=== PATIENT | male | born 1960 | race Caucasian/White ===

== ENCOUNTER → 2024-01-24 09:20 | Outpatient (REF) | payer OTHER, SELFPAY | LOC: RCS 09:20 | PROVIDERS: ATTENDING PHYSICIAN Physician Assistant; FAMILY PHYSICIAN Family Medicine | DX: I25.10 Atherosclerotic heart disease of native coronary artery without angina pectoris (principal); Z95.5 Presence of coronary angioplasty implant and graft; I10 Essential (primary) hypertension; I50.20 Unspecified systolic (congestive) heart failure | CPT/HCPCS: 93306 ==

== ENCOUNTER 2024-02-23 07:38 | Day surgery (SDC) | payer OTHER, SELFPAY ==
[2024-02-23] VITALS (10 sets, daily range): BP systolic 115–167; BP diastolic 62–105; BMI 34.7
[2024-02-23 08:08] LABS: Hematocrit 38.4 % (39.0-52.0); Hemoglobin 13.6 g/dL (13.0-18.0); Mean Corp Hgb Conc. 35.4 g/dL (33.0-37.0); Mean Corpuscular Hgb 32.8 pg (27.0-31.0); Mean Corpuscular Volume 92.5 fL (80.0-94.0); Mean Platelet Volume 10.1 fL (7.4-10.4); Platelet Count 231 10^3/uL (130-400); Red Blood Cell Count 4.15 10^6/uL (4.70-6.10); Red Cell Dist. Width 13.4 % (11.5-14.5); White Blood Cell Count 8.1 10^3/uL (4.8-10.8)
[2024-02-23] MEDS: PLAVIX 75 MG PO (08:12)
[2024-02-23] MEDS: LOW STRENGTH ASPIRIN 324 MG PO (08:13)
[2024-02-23 08:23] LABS: ALT (SGPT) 35 U/L (0-50); AST (SGOT) 46 U/L (17-59); Albumin 5.2 g/dl (3.5-5.0); Alkaline Phosphatase 46 U/L (38-126); Blood Urea Nitrogen 23 mg/dl (9-20); Calcium 9.8 mg/dl (8.4-10.2); Carbon Dioxide 28 mmol/L (22-30); Chloride 102 mmol/L (98-107); Estimated Creatinine Clearance 77 ml/min; Glucose 112 mg/dl (70-99); Potassium 4.4 mmol/L (3.5-5.1); Sodium 142 mmol/L (135-145); Total Bilirubin 0.9 mg/dl (0.2-1.3); Total Protein 7.8 g/dl (6.3-8.2); eGFR > 60.00
[2024-02-23] MEDS: NSS 1000 IV (10:10)
--- NOTE | 2024-02-23 11:42 | ITS.CL.CATH ---
Bin Worker - Catheterization
Cardiac Catheterization
Procedure Report:
LEFT HEART CATHETERIZATION
Date of Procedure: February 23, 2024
Referring: Dr. Landry Connell
PROCEDURES:
1. Left heart catheterization with coronary angiography
INDICATION: This is a 63-year-old gentleman with a past medical history notable for an anterior wall myocardial infarction in June 2014. He never followed up in our office until May 2021 and again was not seen until January 2024. He
reported vague chest tightness intermittently during periods of physical exertion. A CT PET/Myoview was notable for a large reversible inferior, mid inferoseptal, inferior apical defect consistent with ischemia and a moderate-sized fixed mid
anterior and anterior apical defect. He is now referred for coronary angiography.
ACCESS: Right radial artery, 6 Armenian sheath
HEMODYNAMICS : (mmHg)
AO (s/d) : 108/61, 49
LV (s/d) : 109/9
LVEDP : 26
CORONARY FINDINGS
DOMINANCE: Right
LEFT MAIN: Calcified 50% distal left main
LEFT ANTERIOR DESCENDING: The LAD arises normally from the left main and runs in the anterior interventricular groove. The ostial LAD has a 40% stenosis. There is diffuse 50% in-stent restenosis within the mid LAD stent and diffuse nonfocal
stenosis in the mid LAD. The first diagonal branch is small. The second diagonal branch is larger and has a 50% stenosis at its origin
CIRCUMFLEX: The circumflex is a medium caliber nondominant vessel that supplies a single sizable obtuse marginal branch. The proximal OM1 has a 60% stenosis
RIGHT CORONARY ARTERY: The right coronary artery is a dominant vessel that is diffusely diseased and heavily calcified proximally and occluded in the mid vessel with a distal vessel filling via right to right and [id number] collaterals.
VENTRICULOGRAPHY: Left ventriculography is performed in an CORTEZ projection. The digital single-plane left ventricular ejection fraction is visually estimated at 45%. The left ventricular apex does not feel well. There is anterolateral and distal
anterior hypokinesis. The apex is not well-visualized with a filling defect concerning for an apical thrombus. The diaphragmatic portion of the inferior wall to the apical inferior wall is severely hypokinetic
RADIATION SUMMARY: Fluoro Time (min): 6.6, Dose (mGy): 732, DAP (Gy.cm2) : 45.7
Closure Device: TR band
CONCLUSIONS
1. Multivessel coronary artery disease as described above
2. Mild LV dysfunction
RECOMMENDATIONS
1. Consult CT surgery given multivessel coronary artery disease and poor medical compliance/follow-up
2. Consider Definity echocardiogram to assess for apical LV thrombus vs CT angiography. He is scheduled to see Dr. Mendiola 02/28/24
Copy to: Dr. Landry Connell
== END 2024-02-23 12:55 | disposition home or self-care (01) ==
LOC: CATH 07:38
PROVIDERS: ATTENDING PHYSICIAN Internal Medicine Interventional Cardiology; FAMILY PHYSICIAN Family Medicine; OTHER PHYSICIAN Internal Medicine Cardiovascular Disease
DX: I25.10 Atherosclerotic heart disease of native coronary artery without angina pectoris (principal); I25.2 Old myocardial infarction; Z95.5 Presence of coronary angioplasty implant and graft; R07.89 Other chest pain; I10 Essential (primary) hypertension; E78.5 Hyperlipidemia, unspecified; Z87.891 Personal history of nicotine dependence; Z79.02 Long term (current) use of antithrombotics/antiplatelets
CPT/HCPCS: 80053; 85027; 93005; 93458; C1894; Q9967

== ENCOUNTER → 2024-03-16 10:34 | Outpatient (REF) | payer OTHER, SELFPAY | LOC: HWRAD 10:34 | PROVIDERS: ATTENDING PHYSICIAN Thoracic Surgery (Cardiothoracic Vascular Surgery); FAMILY PHYSICIAN Family Medicine | DX: Z01.810 Encounter for preprocedural cardiovascular examination (principal) | CPT/HCPCS: 71250 ==

== ENCOUNTER 2024-04-06 05:16 | Inpatient (IN) | payer OTHER, SELFPAY ==
[2024-03-22 12:11] VITALS: BMI 34.1
[2024-03-22 13:00] LABS: % Basophils 0.3 % (0-2); % Eosinophils 1.9 % (0-6); % Immature Granulocytes 0.1 % (0-0.5); % Lymphocytes 27.1 % (20.5-51.1); % Monocytes 10.5 % (1.7-9.3); % Neutrophils 60.1 % (42.2-75.2); Absolute Eosinophils 0.1 10^3/uL (0-0.7); Absolute Monocytes 0.8 10^3/uL (0.1-0.6); Absolute Neutrophils 4.5 10^3/uL (1.4-6.5); Hematocrit 40.4 % (39.0-52.0); Hemoglobin 14.2 g/dL (13.0-18.0); Mean Corp Hgb Conc. 35.1 g/dL (33.0-37.0); Mean Corpuscular Hgb 32.6 pg (27.0-31.0); Mean Corpuscular Volume 92.9 fL (80.0-94.0); Mean Platelet Volume 10.2 fL (7.4-10.4); Nucleated Red Blood Cells % 0 % (-); Platelet Count 236 10^3/uL (130-400); Red Blood Cell Count 4.35 10^6/uL (4.70-6.10); Red Cell Dist. Width 13.1 % (11.5-14.5); White Blood Cell Count 7.5 10^3/uL (4.8-10.8)
[2024-03-22 13:01] LABS: INR 0.96; PT 13.2 Sec (11.4-14.6)
[2024-03-22 13:02] LABS: APTT 29.3 Sec (23.4-35.0)
[2024-03-22 13:05] LABS: Urine Albumin Negative (Neg - Trace); Urine Bilirubin Negative (Negative); Urine Character Clear (Clear); Urine Color Yellow; Urine Glucose Negative (Negative); Urine Ketone Negative (Negative); Urine Leukocyte Negative (Negative); Urine Nitrite Negative (Negative); Urine Occult Blood Negative (Negative); Urine Urobilinogen Negative (Neg - 1+)
[2024-03-22 14:07] LABS: Glycohemoglobin (HgbA1c) 5.2 % (4.0-5.6)
--- NOTE | 2024-03-22 14:20 | CM ---
CM following for DC planning needs.
Met w/ patient during PATs for planned CABG 04/06.
Pt. informed me that he resides w/ his mother in a private, 1 story home w/ 4 FLAVIO. He cares for his mother, who suffers from Alz/Dementia.
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
Pt. is functionally indep. at baseline w/ ADLs, mobility without the use of any assisted device.
Pt. has RX plan and uses [facility] in [place] for RX needs.
Pre and post op routines reviewed.
Soap, shower instructions and Cardiac Surgery booklet provided.
Post op MD appointments, Cardiac Rehab and visit from CT Transitional Care RN reviewed; patient is agreeable to this.
Plan for CABG 04/06.
Anticipated DC plan is for home w/ CT Transitional Care RN. Mother will have caregiver for 1-2 weeks when patient is recovering and can assist as needed as well.
CM to follow.
[2024-03-22 14:33] LABS: ALT (SGPT) 33 U/L (0-50); AST (SGOT) 27 U/L (17-59); Albumin 5.5 g/dl (3.5-5.0); Alkaline Phosphatase 44 U/L (38-126); Blood Urea Nitrogen 41 mg/dl (9-20); Carbon Dioxide 26 mmol/L (22-30); Chloride 101 mmol/L (98-107); Direct Bilirubin 0.1 mg/dl (0.0-0.4); Estimated Creatinine Clearance 70 ml/min; Glucose 106 mg/dl (70-99); Potassium 4.7 mmol/L (3.5-5.1); Sodium 144 mmol/L (135-145); Total Bilirubin 0.6 mg/dl (0.2-1.3); Total Protein 8.2 g/dl (6.3-8.2); eGFR > 60.00
[2024-04-06] VITALS (18 sets, daily range): BP systolic 103–166; BP diastolic 62–101; BMI 33.6
[2024-04-06] MEDS: MAGNESIUM OXIDE 500 MG PO (06:04)
[2024-04-06] MEDS: LOPRESSOR 25 MG PO (06:04)
[2024-04-06] MEDS: PROTONIX 40 MG PO (06:04)
[2024-04-06] MEDS: BACTROBAN 2% OINTMENT 1 APPLIC NASAL ×2 (06:06→20:00)
[2024-04-06 08:03] LABS: ACT+ - POC 104 Seconds (82-134)
[2024-04-06 08:08] LABS: Urine Albumin Negative (Neg - Trace); Urine Bilirubin Negative (Negative); Urine Character Clear (Clear); Urine Color Yellow; Urine Glucose Negative (Negative); Urine Ketone Negative (Negative); Urine Leukocyte Negative (Negative); Urine Nitrite Negative (Negative); Urine Occult Blood 2+ (Negative); Urine Urobilinogen Negative (Neg - 1+)
[2024-04-06 08:10] LABS: B.E. - POC -6.3 mmol/L; Glucose - POC 110 mg/dl (70-99); HCO3 - POC 19 mmol/L (21-28); Hematocrit - POC 25 % PCV (42-52); Hemodilution- POC No; Hemoglobin Calculated - POC 8.6; O2 Saturation %Calculated-POC 99.6 % (94-98); PCO2 - POC 34 mmHg (35-48); PO2 - POC 195 mmHg (83-108); POC Comment PRE; Potassium - POC 3.4 mmol/L (3.5-5.1); Sodium - POC 143 mmol/L (136-145); Specimen Type - POC Arterial; pH - POC 7.35 (7.35-7.45)
--- NOTE | 2024-04-06 08:30 | CM ---
Reviewed chart. Mr. Worrell is in the operating room today. Prior to admission he resides with his mother in a one story home with four steps to enter. Prior to admission he was independent with ambulation and adls. He does not have any DME in
the home. He has a prescription plan and uses [facility]. He is the caregiver for his mother. She will have a caregiver for one to two weeks while he is recovering from surgery. Medical work-up in progress. The discharge plan is to return home
with his mother and a home visit by the Transitional Care Nurse when medically stable.
[2024-04-06 10:07] LABS: B.E. - POC -3.4 mmol/L; Glucose - POC 122 mg/dl (70-99); HCO3 - POC 22 mmol/L (21-28); Hematocrit - POC 28 % PCV (42-52); Hemodilution- POC No; Hemoglobin Calculated - POC 9.5; Ionized Calcium - POC 1.21 mmol/L (1.15-1.33); O2 Saturation %Calculated-POC 99.5 % (94-98); PCO2 - POC 40 mmHg (35-48); PO2 - POC 179 mmHg (83-108); POC Comment PRE; Potassium - POC 3.9 mmol/L (3.5-5.1); Sodium - POC 140 mmol/L (136-145); Specimen Type - POC Arterial; pH - POC 7.35 (7.35-7.45)
[2024-04-06 10:29] LABS: Urine Amorphous Seen
[2024-04-06 10:30] LABS: Urine White Cell 0-2 /HPF (0-5)
[2024-04-06 10:31] LABS: Urine Red Blood Cell 0-2 /HPF (0-2)
[2024-04-06 11:16] LABS: Glucose - POC 147 mg/dl (70-99); HCO3 - POC 22 mmol/L (21-28); Hematocrit - POC 30 % PCV (42-52); Hemodilution- POC No; Ionized Calcium - POC 1.19 mmol/L (1.15-1.33); O2 Saturation %Calculated-POC 99.2 % (94-98); PCO2 - POC 55 mmHg (35-48); PO2 - POC 171 mmHg (83-108); POC Comment PRE; Potassium - POC 4.6 mmol/L (3.5-5.1); Sodium - POC 140 mmol/L (136-145); Specimen Type - POC Arterial; pH - POC 7.21 (7.35-7.45)
[2024-04-06 12:02] LABS: B.E. - POC -2.1 mmol/L; Glucose - POC 133 mg/dl (70-99); HCO3 - POC 24 mmol/L (21-28); Hematocrit - POC 26 % PCV (42-52); Hemodilution- POC Yes; Hemoglobin Calculated - POC 8.9; Ionized Calcium - POC 1.09 mmol/L (1.15-1.33); O2 Saturation %Calculated-POC 99.9 % (94-98); PCO2 - POC 45 mmHg (35-48); PO2 - POC 291 mmHg (83-108); POC Comment CPB; Potassium - POC 5.5 mmol/L (3.5-5.1); Sodium - POC 139 mmol/L (136-145); Specimen Type - POC Arterial; pH - POC 7.33 (7.35-7.45)
[2024-04-06 12:32] LABS: ACT+ - POC 909 Seconds (82-134)
[2024-04-06 12:41] LABS: B.E. - POC -2.4 mmol/L; Glucose - POC 140 mg/dl (70-99); HCO3 - POC 23 mmol/L (21-28); Hematocrit - POC 24 % PCV (42-52); Hemodilution- POC Yes; Hemoglobin Calculated - POC 8.2; Ionized Calcium - POC 1.06 mmol/L (1.15-1.33); O2 Saturation %Calculated-POC 99.9 % (94-98); PCO2 - POC 44 mmHg (35-48); PO2 - POC 339 mmHg (83-108); POC Comment CPB; Potassium - POC 6.4 mmol/L (3.5-5.1); Sodium - POC 138 mmol/L (136-145); Specimen Type - POC Arterial; pH - POC 7.33 (7.35-7.45)
[2024-04-06 12:57] LABS: ACT+ - POC 846 Seconds (82-134)
[2024-04-06 13:03] LABS: ACT+ - POC > 1003 Seconds (82-134)
[2024-04-06 13:03] LABS: ACT+ - POC > 1003 Seconds (82-134)
[2024-04-06 13:03] LABS: ACT+ - POC > 1003 Seconds (82-134)
[2024-04-06 13:18] LABS: B.E. - POC -2.3 mmol/L; Glucose - POC 146 mg/dl (70-99); HCO3 - POC 23 mmol/L (21-28); Hematocrit - POC 25 % PCV (42-52); Hemodilution- POC Yes; Hemoglobin Calculated - POC 8.5; Ionized Calcium - POC 1.05 mmol/L (1.15-1.33); O2 Saturation %Calculated-POC 99.9 % (94-98); PCO2 - POC 42 mmHg (35-48); PO2 - POC 293 mmHg (83-108); POC Comment REWARM; Potassium - POC 5.6 mmol/L (3.5-5.1); Sodium - POC 140 mmol/L (136-145); Specimen Type - POC Arterial; pH - POC 7.35 (7.35-7.45)
[2024-04-06 13:33] LABS: ACT+ - POC 536 Seconds (82-134)
[2024-04-06 13:43] LABS: B.E. - POC -0.6 mmol/L; Glucose - POC 159 mg/dl (70-99); HCO3 - POC 24 mmol/L (21-28); Hematocrit - POC 25 % PCV (42-52); Hemodilution- POC Yes; Hemoglobin Calculated - POC 8.4; Ionized Calcium - POC 1.07 mmol/L (1.15-1.33); O2 Saturation %Calculated-POC 99.9 % (94-98); PCO2 - POC 40 mmHg (35-48); PO2 - POC 280 mmHg (83-108); POC Comment WARM; Potassium - POC 5.5 mmol/L (3.5-5.1); Sodium - POC 141 mmol/L (136-145); Specimen Type - POC Arterial; pH - POC 7.39 (7.35-7.45)
[2024-04-06 13:50] LABS: ACT+ - POC 109 Seconds (82-134)
[2024-04-06 13:53] LABS: Glucose - POC 150 mg/dl (70-99); HCO3 - POC 23 mmol/L (21-28); Hematocrit - POC 24 % PCV (42-52); Hemodilution- POC Yes; Hemoglobin Calculated - POC 8.1; Ionized Calcium - POC 1.31 mmol/L (1.15-1.33); PCO2 - POC 41 mmHg (35-48); PO2 - POC 411 mmHg (83-108); POC Comment POST; Potassium - POC 4.8 mmol/L (3.5-5.1); Sodium - POC 141 mmol/L (136-145); Specimen Type - POC Arterial; pH - POC 7.35 (7.35-7.45)
--- NOTE | 2024-04-06 14:10 | CON.INTV ---
Consultation
Consultation Request
Date/Time Consultation Requested: 04/06/2024 - 1347
Date/Time Consultation Performed: 04/06/2024 - 1406
Requesting Provider: JAXSON Baldwin
Performing Provider: Matt Lim MD
Reason for Consultation: s/p CABG x4
Medical History
-
Chief Complaint: Elective CABG
History of Present Illness:
63-year-old male former tobacco smoker with a past medical history of CAD, hypertension, hyperlipidemia who presents for elective CABG. Patient known to the cardiothoracic surgery service with last visit on 03/06/[address] Mendiola. Patient has
known multivessel CAD with left heart catheterization performed on 02/19/2024 showing disease in the left main (50%), LAD with 50% in-stent restenosis within the mid LAD stent and diffuse nonfocal stenosis of the mid LAD, 60% stenosis of the OM1 and
diffusely diseased and heavily calcified proximal and occluded mid vessel RCA. Chest CT on 03/16/2024 showed subsegmental atelectasis versus scarring with severe coronary artery calcifications. Surgical revascularization was discussed including
its risks and benefits and he agreed to intervention. Today he underwent CABG x 4 with lysis of pericardial adhesions. There were no immediate complications and he transfused 1 unit PRBC. He was transferred to the CVICU with bilateral pleural
chest tubes and mediastinal chest tubes x 2. Appraisal Analyst/pulmonary service is now consulted for additional management/recommendations.
When I saw the patient he was resting in bed in no acute distress, intubated on SIMV at 550/14/40%/5, with PIP: 11 cmH2O, VTe 385 mL and breathing at 21 breaths/min. BP via left radial A-line: 103/56, BP via NIBP: 111/78, and saturating 99%.
Currently on insulin drip at 3.5 units/hr and Levophed at 2 mcg/min.
PMHx: History of NC, CAD, hypertension, hyperlipidemia, cardiomyopathy
PSHx: Coronary stent
Past Medical History
Past Medical History: Other (Above as per HPI)
Past Surgical History: Other (Above as per HPI)
Social History
Tobacco: Former Smoker (Quit 35 years ago, smoked 4 packs/day; he is still actively vaping)
Alcohol: None
Drug: None
Employment: Employed ([employer])
Family History
Family History: CAD (Father + paternal grandfather)
Allergies / Home Medications
Allergies
Allergy/AdvReac Type Severity Reaction Status Date / Time
No Known Allergies Allergy Verified 03/21/24 09:28
Home Medications
�Medication �Instructions �Recorded �Confirmed �Last Taken �Type
atorvastatin 40 mg tablet 80 mg (2 x 40 mg) PO QPM ##30 06/20/14 04/06/24 04/05/24 Rx
amlodipine 10 mg tablet 10 mg PO DAILY #30 tabs 05/06/21 04/06/24 04/05/24 16:00 Rx
carvedilol 12.5 mg tablet 12.5 mg PO BID #60 tabs 05/06/21 04/06/24 04/05/24 Rx
clopidogrel 75 mg tablet 75 mg PO DAILY #30 tabs 05/06/21 04/06/24 03/30/24 Rx
furosemide 40 mg tablet 40 mg PO DAILY #30 tabs 05/06/21 04/06/24 03/30/24 Rx
lisinopril 20 mg tablet 40 mg (2 x 20 mg) PO DAILY #30 tabs 05/06/21 04/06/24 04/05/24 Rx
potassium chloride 10 mEq 10 meq PO DAILY ##30 05/06/21 04/06/24 04/05/24 Rx
tablet,extended release
spironolactone 25 mg tablet 25 mg PO QPM 02/23/24 04/06/24 04/05/24 History
hydralazine 25 mg tablet 25 mg PO BID 03/21/24 04/06/24 04/05/24 History
Review of Systems
-
Unable to Obtain full review of systems at this time due to: Patient Intubation
Vitals / Labs / Diagnostic Testing
Vital Signs
Pulse BP
84 166/104
04/06/24 06:04 04/06/24 06:04
Diagnostic Testing:
Physical Exam
-
HEENT: Normocephalic, Anicteric and Other (ETT in place)
Cardiovascular: S1/S2 and Peripheral Edema (negative)
Respiratory: Wheeze (negative), Rales (negative), Rhonchi (negative), Other (Mechanical breath sounds heard bilaterally) and Other (Bilateral pleural chest tubes + mediastinal chest tubes x 2)
GI: Soft, Non Distended, Non Tender and Normal Bowel Sounds
Neurology: Tremors (negative) and Other (Sedated)
Skin: Warm and Dry
General: Respiratory Distress (negative), Comfortable, Fever (negative) and Chills (negative)
Assessment
-
Assessment: 63-year-old male former tobacco smoker with a past medical history of CAD, hypertension, hyperlipidemia who presents for elective CABG. Patient known to the cardiothoracic surgery service with last visit on 03/06/[address] Mendoila.
Patient has known multivessel CAD with left heart catheterization performed on 02/19/2024 showing disease in the left main (50%), LAD with 50% in-stent restenosis within the mid LAD stent and diffuse nonfocal stenosis of the mid LAD, 60% stenosis of
the OM1 and diffusely diseased and heavily calcified proximal and occluded mid vessel RCA. Chest CT on 03/16/2024 showed subsegmental atelectasis versus scarring with severe coronary artery calcifications. Surgical revascularization was discussed
including its risks and benefits and he agreed to intervention. On 04/06/2024 he underwent CABG x 4 with lysis of pericardial adhesions. There were no immediate complications and he transfused 1 unit PRBC. He was transferred to the CVICU with
bilateral pleural chest tubes and mediastinal chest tubes x 2. Appraisal Analyst/pulmonary service is now consulted for additional management/recommendations.
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
Impression:
#Multivessel CAD s/p CABG x 4 with lysis of pericardial adhesions (POD #0)
#Acute anemia
#History of hypertension
#History of hyperlipidemia
#Obesity (BMI: 33.6)
#Former tobacco smoker (Quit 35 years ago, smoked 4 packs/day)
#Nicotine vape use
Plan:
Ventilator settings reviewed
FiO2 will be weaned to maintain SpO2 >90-94%
Minute ventilation will be adjusted
Arterial blood gases will be monitored
Spontaneous breathing trial will be attempted with hopeful extubation after anesthesia/sedation wear off
prn nebulized bronchodilators
Pulmonary artery catheter parameters will be followed
Pressors/antihypertensive/inotropes/diuretics will be provided as needed
Maintain MAP>65
Replete electrolytes with K>4, Mg>2
Monitor chest tube output (bilateral pleural + mediastinal x2)
Monitor hemoglobin
Monitor platelet count and coags
Transfuse blood products as needed to maintain Hb>7g/dL, plt>50k (given post-operative status)
CT surgery managing chest tubes
Monitor blood sugar to maintain euglycemia with goal BG 140-180
Insulin drip per protocol
Aspiration precautions
VAP prevention protocol
DVT prophylaxis
Early nutrition
Early mobilization
Critical care statement: A total of 46 minutes of critical care time was provided for this patient today. This includes management of ventilator, spontaneous breathing trial, arterial blood gases, pressors, of unstable vital signs, evaluation of the
patient at bedside, reviewing the patient's pertinent medical records including radiographs, microbiology, laboratory evaluations, and discussion with primary team and critical care nursing.
--- NOTE | 2024-04-06 14:15 | W.CVOR.SURPR ---
CVOR Surgeon Immed Pre Op
-
I have examined this patient prior to performance of the scheduled procedure.
The patient's condition is unchanged from the time of the dictated/written History and
Physical and the patient is able to undergo the scheduled procedure.
--- NOTE | 2024-04-06 14:16 | W.IMMPOSTOP ---
Addendum entered and electronically signed by Emanuel Mendiola MD 04/06/24 15:16:
[id number]
Original Note:
Surgical Immed Post Op Note
-
CARDIAC SURGERY OPERATIVE NOTE:
Preoperative Dx:
MVCAD
Postoperative Dx:
Same
Procedures:
1) Median sternotomy
2) Takedown of VERONICA (narrow pedicle)
3) Endoscopic harvest of RLE GSV
4) Lysis of pericardial adhesions (sharp/blunt)
5) Endoscopic harvest of LLE GSV
6) CABG x 4 (VERONICA to LAD, GSV to D2, GSV to OM, GSV to PDA)
Surgeon:
Emanuel Mendiola M.D.
Assistants:
Pratibha Lamb P.A.-C.; advertising sales assistant throughout
Maria Luisa Cherry P.A.-C.; endoscopic harvest/prep of B/L LE GSV; closure; [id number]
Anesthesia:
Patrice Shelby M.D.
Perfusion:
Kobe MarcosCBri; XC: 100min, CPB 154min
Findings:
VERONICA was healthy conduit w/ brisk blood flow; ELD 2.00mm
RLE GSV was healthy conduit over distance to accomplish 2 of the planned grafts; ELD 3.00-3.50mm
LLE GSV was healthy conduit; ELD 3.00-3.25mm
PDA was obscured by epicardial adipose tissue, but was encountered in its normal anatomic location. It was a small vessel w/ ELD 1.2mm. Anastomosis performed over 1.00mm shunt
OM was visible on the epicardial surface w/ scattered calcifications, ELD 2.75mm
D2 was visible on the epicardial surface w/ scattered calcifications, ELD 2.50mm
LAD was obscured by epicardial adipose tissue, but was encountered in its normal anatomic location. ELD 2.5mm at midpoint anastomosis
There were moderately dense pericardial adhesions to the LV apex and diaphragmatic surfaces of the heart. These were carefully lysed w/ sharp & blunt dissection on CPB (~5-10min)
Good flow in grafts to LAD, OM, D2; reasonable flow in graft to PDA given small size of this coronary
Post-ANDRIA: LVEF 55-60% w/ no RWMA, RV normal, mild AI, mild MR, trace TR, mild PI - no change in mild sessile atheroma in descending thoracic aorta and distal arch
Complications:
None
Transfusions:
1U PRBC
Implants:
CT x 4 (B/L pleural, inferior mediastinal, superior mediastinal)
Sternal wires x 7
Sternal 'X' plate w/ 8 - 14mm screws
Sternal 'Square' plate w/ 4 - 12mm screws
Condition:
79 isoelectric sinus (0.6/0.2), 95/54. CVP: 12. 98%
GTTS: levophed 8, insulin 1, precedex 0.5
[2024-04-06 14:55] LABS: Glucose - Point of Care 163 mg/dl (70-99)
[2024-04-06 15:06] LABS: Hematocrit 28.1 % (39.0-52.0); Hemoglobin 9.6 g/dL (13.0-18.0); Platelet Count 162 10^3/uL (130-400)
--- NOTE | 2024-04-06 15:06 | W.PN.CARDCBS ---
Addendum entered and electronically signed by Gini Holder MD 04/06/24 16:02:
I saw and examined the patient.
The Community Arts Officer's note was reviewed and I agree with the note.
Comment: Patient is s/p 4v CABG with WOLFE to LAD, SVG to D2, OM, PDA on 04/06/[address] Emanuel Mendiola.
Vitals and LAbs reviewed. On Levo. Intubated, sedated, RR, Normal S1 and S2. Sternotomy wound dressed with dressing c/d/i, CTAB anteriorly, warm ext.
Plan:
1. Wean vent and pressors as tolerated.
2. Post op ecg with SR, RBBB, age indeterminate inferior and infarct. No acute ischemic changes.
3. Monitor post-op anemia and renal fxn. Monitor tele.
4. Cont supportive post op care.
Gini Holder MD, [facility].
Original Note:
Today's Communication / Plan
-
Wean Levophed as tolerated
Postop chest x-ray pending
Wean sedation with hopeful anticipation later this evening
Continue to monitor on telemetry, right bundle branch block is now
Impression / Plan
-
PCP:
Software Engineer Web Applications: RADHA Connell
Impression:
Multivessel CAD for elective CABG
s/p CABG X 4 (WOLFE to LAD, SVG to D2, SVG to OM, SVG to PDA) 04/06/2024
Coronary artery disease
Status post anterior wall MS with LAD ZORAN June 2014
Cardiomyopathy
Heart failure with reduced ejection fraction
Hypertension
Hyperlipidemia
Former tobacco use
History of noncompliance
Cardiac catheterization 02/23/2024: Left main 50% distal. LAD: Ostial 40%, diffuse 50% in-stent restenosis of mid LAD stent. Second diagonal 50% stenosis at origin. Left circumflex patent, proximal OM1 60% stenosis. RCA diffusely
diseased/heavily calcified occluded mid visit vessel with right to right and [id number] collaterals. LVG 45% with anterolateral and distal anterior hypokinesis. Hypokinesis of inferior to apical inferior wall
Pet/CT Myocard Perf 01/24/2024:Perfusion imaging reveals Large reversible inferior, mid inferoseptal and inferoapical defect consistent with ischemia. Moderate sized fixed mid anterior to anteroapical defect consistent with infarction. Stress Risk is
high risk study (>3% MS or /year). Systolic function is Normal. The stress ejection fraction is 61%.
Echo 01/24/2024: EF 50 to 55%. Mild LVH. Mild MR, mild AI, PAP 28 mmHg
Plan:
-Presents 04/06/2024 for elective CABG after being found to have exertional chest discomfort prompting him to undergo cardiac catheterization January 2024 which demonstrated multivessel coronary artery disease
-Status post CABG X 4 (WOLFE to LAD, SVG to D2, SVG to OM, SVG to PDA) 04/06/2024
-Patient seen immediate postop and remains intubated and sedated. Anticipate weaning sedation with hopeful extubation this evening
-Currently requiring Levophed at 4 mcg/kg/min, wean as tolerated and hemodynamics allow. Of note pt took his AM lisinopril this am.
-Postop EKG shows sinus rhythm with right bundle branch block. Bundle branch block is new postop.
-Postop hemoglobin 9.6, patient did get 1 unit of packed RBCs intra-op. Continue to monitor and trend
-CXR pending, lung sounds clear
HPI 04/06/2024:
This is a 63-year-old gentleman with a past medical history notable for an anterior wall myocardial infarction in June 2014. He never followed up in our office until May 2021 and again was not seen until January 2024. He reported vague
chest tightness intermittently during periods of physical exertion. A CT PET/Myoview was notable for a large reversible inferior, mid inferoseptal, inferior apical defect consistent with ischemia and a moderate-sized fixed mid anterior and anterior
apical defect. Coronary angiography 02/23/2024 demonstrated multivessel coronary artery disease and patient was referred for CABG.
Progress Note - Software Engineer Web Applications
Subjective
Date of Service: April 06, 2024
Patient seen and examined immediate postop. Patient currently intubated and sedated. Hemodynamically stable on Levophed
Objective
Labs:
Labs
Hgb 14.2 g/dL (13.0-18.0) 03/22/24 12:28
Hct 40.4 % (39.0-52.0) 03/22/24 12:28
Plt Count 236 10^3/uL (130-400) 03/22/24 12:28
PT 13.2 Sec (11.4-14.6) 03/22/24 12:28
INR 0.96 03/22/24 12:28
APTT 29.3 Sec (23.4-35.0) 03/22/24 12:28
Sodium 144 mmol/L (135-145) 03/22/24 12:28
Potassium 4.7 mmol/L (3.5-5.1) 03/22/24 12:28
BUN 41 mg/dl (9-20) H 03/22/24 12:28
Creatinine 1.2 mg/dL (0.7-1.3) 03/22/24 12:28
Glucose 106 mg/dl (70-99) H 03/22/24 12:28
Vital Signs and I&O:
Vital Signs
Pulse BP
84 166/104
04/06/24 06:04 04/06/24 06:04
Vital Signs
Pulse BP
84 166/104
04/06/24 06:04 04/06/24 06:04
Physical Exam
Physical Exam
GEN: Intubated and sedated
HEENT: supple, anicteric, mmm
LUNGS: CTA, no wheezes/rales; on ventilator
CV: Reg, S1/S2, no murmur, rub or gallop
ABD: soft, BS+, NT/ND
EXT: No edema, clubbing or cyanosis; right leg wrapped in Kendall bandage
NEURO: Intubated and sedated
SKIN: No rash
[2024-04-06 15:12] LABS: B.E. -4.2 mmol/L; HCO3 22.6 mmol/L (21-28); Ionized Calcium 1.22 mMOL/L (1.15-1.33); PCO2 48 mmHg (35-48); PO2 153 mmHg (83-108); Potassium 4.3 mMOL/L (3.5-5.1); Sodium 138 mMOL/L (136-145); pH 7.28 (7.35-7.45)
[2024-04-06 15:13] LABS: O2 Therapy VENT
--- NOTE | 2024-04-06 15:14 | PTCARENOTE ---
received pt from [facility] OR into 2262, sinus rhythm on tele w HR 80, + rub, bp via left radial viry 115/66, CVP 13, + peripheral pulses. Lungs diminished, ETT #8/23 cm at right lip VENT SETTINGS: 500/12/60%/+5, pox 99%. Right IJ cordis w slick, left
radial viry leveled and zeroed, PIV flushes easily. CT x4 w minimal amount of red drainage, garcia draining clear yellow. Surgical sites stable. CPOT 0 RASS -5
DRIPS: Levophed 6 mcg/min
Precedex 0.5 mcg/kg/hr
[2024-04-06 15:20] LABS: INR 1.49; PT 18.3 Sec (11.4-14.6)
[2024-04-06 15:21] LABS: APTT 27.3 Sec (23.4-35.0)
--- NOTE | 2024-04-06 15:30 | PTCARENOTE ---
Vent settings changed by RT per CT JESUS
[2024-04-06 15:40] LABS: Blood Urea Nitrogen 29 mg/dl (9-20); Estimated Creatinine Clearance 83 ml/min; Glucose 153 mg/dl (70-99); Magnesium 3.4 mg/dl (1.6-2.3)
[2024-04-06 15:50] LABS: Glucose - Point of Care 162 mg/dl (70-99)
[2024-04-06] MEDS: NOVOLOG FLEXPEN SC ×2 (15:57→16:38)
[2024-04-06] MEDS: TYLENOL PO (15:57)
[2024-04-06] MEDS: NSS 500 IV (15:57)
[2024-04-06] MEDS: SODIUM BICARBONATE 50 MEQ IV (15:57)
[2024-04-06] MEDS: ANCEF 10 IV ×2 (15:57→15:58)
[2024-04-06] MEDS: NEURONTIN PO ×2 (15:57→16:38)
[2024-04-06] MEDS: LIPITOR PO (15:58)
[2024-04-06] MEDS: PACERONE PO (15:58)
--- NOTE | 2024-04-06 16:30 | PTCARENOTE ---
Repeat ABG drawn and sent as ordered.
[2024-04-06 16:36] LABS: Glucose - Point of Care 153 mg/dl (70-99)
[2024-04-06 16:48] LABS: B.E. 1.9 mmol/L; HCO3 26.6 mmol/L (21-28); O2 Saturation % 98.2 % (94-98); PCO2 41 mmHg (35-48); PO2 86 mmHg (83-108); pH 7.42 (7.35-7.45)
--- NOTE | 2024-04-06 16:48 | PTCARENOTE ---
precedex weaned off, pt following simple commands.
--- NOTE | 2024-04-06 17:01 | W.PN.UPDATE ---
Update Note
Progress Note Update
63-year-old male was electively admitted on 04/06 for CABG due to triple-vessel coronary disease
IV fluids: 2100
U.O.:� 750
Blood:� none
Wires:� none
Inotropes:� none
Pressors:� Levophed
Sedatives:� Precedex
�
NEURO: sedated on Precedex, pupils +2mm B/L
RESP: #8OT @24cm> 500/60%/14/5. Lungs clear B/L. 2 mediastinal (10cc on arrival) and R/L pleural (5cc on arrival) chest tubes to -20cm suction. Sanguineous drainage
CV: RRR +S1, S2, no S3, no�rub, no murmur. Dermabond to median sternotomy. RIJ intact w/o Coggon
ABD: round, soft, no BS
EXT: no edema, +2/4 DP pulses B/L, no femoral bruit, B/L LE SHWETA wrap intact; left radial A-line intact
: Carson with clear yellow urine
�
A/P: POD #0 s/p CABG x 4 (VERONICA to LAD, GSV to D2, GSV to OM, GSV to PDA)
ANDRIA: EF�55-60%, mild MR/AI
- wean and extubate
- insulin x 24 hours as not diabetic
# CAD
- will require ASA/Plavix, statin, beta-velvet
# HTN
- currently on Levophed
- assess need for resumption of home hydralazine,
# HFimpEF (EF 55-60% from 45-50% prior outpatient)
- assess need for resumption of lasix, amlodipine, spironolactone (hx IN)
�
# acute surgical blood loss anemia-expected
- Hb 9.6
- continue FeSo4
- trend CBC
�
�
�
--- NOTE | 2024-04-06 17:10 | PTCARENOTE ---
pt placed on CPAP wean by RT
[2024-04-06 17:40] LABS: Glucose - Point of Care 119 mg/dl (70-99)
[2024-04-06 17:53] LABS: B.E. 0.8 mmol/L; HCO3 25.3 mmol/L (21-28); Ionized Calcium 1.18 mMOL/L (1.15-1.33); O2 Saturation % 99.1 % (94-98); PCO2 39 mmHg (35-48); PO2 127 mmHg (83-108); Potassium 4.1 mMOL/L (3.5-5.1); Sodium 139 mMOL/L (136-145); pH 7.42 (7.35-7.45)
--- NOTE | 2024-04-06 18:09 | PTCARENOTE ---
pt extubated to 6L NC, POX 98%.
[2024-04-06] MEDS: CALCIUM GLUCONATE 100 IV (18:13)
[2024-04-06 18:37] LABS: Glucose - Point of Care 108 mg/dl (70-99)
[2024-04-06 18:43] LABS: Hematocrit 29.8 % (39.0-52.0); Hemoglobin 10.5 g/dL (13.0-18.0); Platelet Count 177 10^3/uL (130-400)
--- NOTE | 2024-04-06 19:00 | PTCARENOTE ---
assumed care of patient @ 1900. received pt laying in bed, Aox3. NSR on tele monitor HR 80s. +PP, -E. No pacing wires. BPs on A line elevated 140s-160s, however cuff pressure showing 120s. CTPA advises to go off cuff. CVP ~12. Lungs clear,
diminished satting high 90s on 6L NC. 4 chest tubes present to wall suction, no air leak, tidaling or crepitus noted. Bowel sounds hypoactive, garcia present draining clear yellow urine. MSI with aquacel, B/l SVG sites approximated wrapped with SHWETA.
L radial a line, R IJ Cordis with SLIC, PIV R AC all central lines zeroed, flushed. received with insulin per protocol. Michelle given for 6/10 sternal pain. Call dotson within reach, bed low and locked.
[2024-04-06] MEDS: ROXICODONE 5 MG PO (19:31)
[2024-04-06 19:59] LABS: Glucose - Point of Care 101 mg/dl (70-99)
[2024-04-06] MEDS: ANCEF 5 IV (19:59)
[2024-04-06] MEDS: LOW STRENGTH ASPIRIN 81 MG PO (19:59)
[2024-04-06] MEDS: NEURONTIN 100 MG PO (20:49)
[2024-04-06] MEDS: PACERONE 200 MG PO (20:50)
[2024-04-06] MEDS: TYLENOL 1000 MG PO (20:50)
[2024-04-06] MEDS: SENOKOT-S PO (21:18)
[2024-04-06] MEDS: DILAUDID 0.25 MG IV (21:53)
[2024-04-06 22:00] LABS: Glucose - Point of Care 112 mg/dl (70-99)
--- NOTE | 2024-04-06 22:04 | PTCARENOTE ---
pt with increased pain and BP, Dilaudid .25 given per CTPA rec
--- NOTE | 2024-04-06 23:17 | PTCARENOTE ---
pt resting comfortably, arterial SBP still elevated 150s-180s, per CTPA start cardene in cuff SBP >145.
[2024-04-07] VITALS (26 sets, daily range): BP systolic 98–163; BP diastolic 65–90; PULSE 79; O2SAT 92–94; BMI 34.4
[2024-04-07 00:09] LABS: Glucose - Point of Care 107 mg/dl (70-99)
[2024-04-07] MEDS: ROXICODONE 5 MG PO ×4 (00:12→20:36)
[2024-04-07] MEDS: CARDENE 200 IV ×2 (00:20→06:48)
--- NOTE | 2024-04-07 00:21 | PTCARENOTE ---
cuff pressure >145, cardene started at 2.5
[2024-04-07 02:00] LABS: Glucose - Point of Care 99 mg/dl (70-99)
--- NOTE | 2024-04-07 03:00 | PTCARENOTE ---
labs drawn and sent , EKG done, pt resting comfortably
[2024-04-07 04:01] LABS: Glucose - Point of Care 119 mg/dl (70-99)
[2024-04-07 04:12] LABS: Hematocrit 26.8 % (39.0-52.0); Hemoglobin 9.5 g/dL (13.0-18.0); Mean Corp Hgb Conc. 35.4 g/dL (33.0-37.0); Mean Corpuscular Hgb 32.8 pg (27.0-31.0); Mean Corpuscular Volume 92.4 fL (80.0-94.0); Mean Platelet Volume 10.4 fL (7.4-10.4); Platelet Count 162 10^3/uL (130-400); Red Cell Dist. Width 13.3 % (11.5-14.5)
[2024-04-07 04:35] LABS: Blood Urea Nitrogen 19 mg/dl (9-20); Calcium 8.3 mg/dl (8.4-10.2); Carbon Dioxide 24 mmol/L (22-30); Chloride 108 mmol/L (98-107); Estimated Creatinine Clearance 104 ml/min; Glucose 115 mg/dl (70-99); Magnesium 2.2 mg/dl (1.6-2.3); Potassium 3.5 mmol/L (3.5-5.1); Sodium 143 mmol/L (135-145); eGFR > 60.00
[2024-04-07] MEDS: KCL 50 IV ×2 (04:50→06:46)
[2024-04-07] MEDS: ANCEF 5 IV ×2 (04:50→11:17)
--- NOTE | 2024-04-07 06:10 | W.PN.CT ---
Today's Communication / Plan
-
Plan:
-No major issues overnight. Hemodynamically and neurologically intact
-Successfully extubated on 04/06/24 @ 1810
-Weaned off Levophed gtt, remains on insulin gtt per protocol
-No swan, U/O since OR: 1944
-K+ 3.5, replete
-Monitor chest tube output: 2meds 95/160, R/L pleural 175/280
-Cont. current meds (ASA, Lopressor- eventual transition home dose Coreg, Amiodarone, Lipitor; will add Plavix)
-D/C'd a-line and SLIC @ 0500
-D/C'd garcia catheter @ 0600
-Tele phase today when off insulin gtt per protocol
-No temporary PW
-Maintain cordis
-Encourage use of IS
-Encourage cessation of vaping
-Wean off of O2 as tolerated
-OOB into chair/Ambulate
Assessment / Plan
-
Assessment:
-S/P Median sternotomy/CABG x 4 (VERONICA to LAD, GSV to D2, GSV to OM, GSV to PDA)/Endoscopic harvest of RLE GSV/Endoscopic harvest of LLE GSV/Lysis of pericardial adhesions (sharp/blunt), by Dr. Mendiola, 04/06/24, pod#1
-Multivessel CAD/Hx TN/CAD S/P PCI with ZORAN to LAD, 06/18/14
-Hx systolic CHF
-LVEF 55% per intraop ANDRIA
-Mild MR/AI
-HTN
-HLD
-Class 1 obesity (BMI 33.6)
-History of noncompliance
-Former tobacco smoker (Quit 35 years ago, smoked 4 packs/day)
-Current Nicotine vape use
-Acute postop blood loss/Anemia (transfused 1u PRBC)
-Acute postop atelectasis/pleural effusion
-Acute postop hypovolemia with subsequent hypervolemia
Discussed patient care with: Cardiology, Nursing, Respiratory Therapy, Pharmacy and Care Team
Subjective
Procedure
S/P Median sternotomy/CABG x 4 (VERONICA to LAD, GSV to D2, GSV to OM, GSV to PDA)/Endoscopic harvest of RLE GSV/Endoscopic harvest of LLE GSV/Lysis of pericardial adhesions (sharp/blunt), by Dr. Mendiola, 04/06/24,
-
Date of Service: April 07, 2024
Pt c/o incisional pain, otherwise feels well
Objective Data
-
Lab Results
04/07/24 03:38
04/07/24 03:38
PT 18.3 Sec (11.4-14.6) H 04/06/24 14:42
INR 1.49 04/06/24 14:42
APTT 27.3 Sec (23.4-35.0) 04/06/24 14:42
Vital Signs
Vital Signs
Temp Pulse Resp BP Pulse Ox
99.3 F 86 15 126/74 93
04/07/24 04:57 04/07/24 04:00 04/07/24 04:57 04/07/24 04:00 04/07/24 04:57
CT Intake/Output/Weight
04/06/24 04/06/24 04/07/24
06:59 18:59 06:59
Intake Total 154.2 / 843.7 689.5 / 843.7
Output Total 870 / 2175 1305 / 2175
Balance -715.8 / -1331.3 -615.5 / -1331.3
SaO2: 93 (2L )
Physical Exam
-
General: Awake, Oriented and AOx3
Cardiovascular: Regular rate & rhythm, No Murmurs, Rub (likely friction rub from chest tubes) and No Gallop
Respiratory: Decreased Breath Sounds
Sternum: Stable
Incision: Clean, Dry, Intact and Dressing Intact
Extremities: Other (+trace edema)
Data Reviewed
-
Lab Results: Results Reviewed
Medications: Active Meds Reviewed
Chest X-Ray: Report Reviewed and Image Reviewed
ECG: Report Reviewed and Image Reviewed
[2024-04-07 06:26] LABS: Glucose - Point of Care 102 mg/dl (70-99)
--- NOTE | 2024-04-07 07:03 | PTCARENOTE ---
tanner garcia, SLIC all d/cd per order. Pt stood to scale and chair, did excellent very strong with steady gait. pt now resting comfortably in chair.
[2024-04-07] MEDS: TYLENOL PO (07:34)
[2024-04-07 07:50] LABS: Glucose - Point of Care 133 mg/dl (70-99)
[2024-04-07] MEDS: FLEXERIL 5 MG PO ×2 (07:55→23:36)
[2024-04-07] MEDS: MAGNESIUM OXIDE 500 MG PO ×2 (07:56→20:35)
[2024-04-07] MEDS: SENOKOT-S 1 TABLET PO ×2 (07:56→20:36)
[2024-04-07] MEDS: NEURONTIN 100 MG PO ×3 (07:56→23:13)
[2024-04-07] MEDS: VITAMIN C 500 MG PO (07:56)
[2024-04-07] MEDS: LOW STRENGTH ASPIRIN 81 MG PO (07:56)
[2024-04-07] MEDS: PLAVIX 75 MG PO (07:56)
[2024-04-07] MEDS: FEOSOL 325 MG PO (07:56)
[2024-04-07] MEDS: PROTONIX 40 MG PO (07:56)
[2024-04-07] MEDS: LOPRESSOR 12.5 MG PO ×2 (07:56→11:16)
[2024-04-07] MEDS: PACERONE 200 MG PO ×4 (07:56→23:13)
[2024-04-07] MEDS: BACTROBAN 2% OINTMENT 1 APPLIC NASAL ×2 (07:57→20:31)
[2024-04-07] MEDS: NOVOLOG FLEXPEN 4 UNITS SC (07:57)
[2024-04-07] MEDS: LIDOCAINE 4% PATCH 1 PATCH TOPICAL (08:10)
--- NOTE | 2024-04-07 08:30 | PTCARENOTE ---
Assumed care of patient at 0700. Pt is awake, alert, and oriented. Pt with sternal pain, PRN Roxicodone administered. Pt remains SR with HR 80's-90's. BP 128/89 MAP 102. Pt with audible rub on auscultation. Pulse oximetry 91% on room air.
Mediastinal chest tubes (x2), left and right pleural chest tubes in place, no sign of air leak or crepitus. Pt tolerating clear liquid diet and PO medication. Pt is due to void. Midsternal incision with post-op dressing in place. Bilateral left and
right leg wrapped with paula wrap in place. Right IJ cordis in place with KVO. Pt remains on insulin gtt per glycemic protocol. Pt remains on Cardene gtt, currently at 2.5mg/hr. Pt currently resting OOB in chair with call dotson within reach.
--- NOTE | 2024-04-07 08:34 | W.PN.INTV ---
Today's Communication / Plan
Recommendations
Pain control
Wean off insulin drip with goal BG 140�180
Once off insulin drip then would continue with ISS to maintain BG goal as above
Up OOB as Toller
Encourage incentive spirometer
Patient is being weaned off of insulin drip and then being downgraded to CVICU�telemetry status. Once downgraded then we will sign off. Please re-consult if there are any additional questions/concerns, or if patient's respiratory status
deteriorates.
Assessment
-
Assessment: 63-year-old male former tobacco smoker with a past medical history of CAD, hypertension, hyperlipidemia who presents for elective CABG. Patient known to the cardiothoracic surgery service with last visit on 03/06/[address] Mendiola.
Patient has known multivessel CAD with left heart catheterization performed on 02/19/2024 showing disease in the left main (50%), LAD with 50% in-stent restenosis within the mid LAD stent and diffuse nonfocal stenosis of the mid LAD, 60% stenosis of
the OM1 and diffusely diseased and heavily calcified proximal and occluded mid vessel RCA. Chest CT on 03/16/2024 showed subsegmental atelectasis versus scarring with severe coronary artery calcifications. Surgical revascularization was discussed
including its risks and benefits and he agreed to intervention. On 04/06/2024 he underwent CABG x 4 with lysis of pericardial adhesions. There were no immediate complications and he transfused 1 unit PRBC. He was transferred to the CVICU with
bilateral pleural chest tubes and mediastinal chest tubes x 2. Airport Tower Controller/pulmonary service is now consulted for additional management/recommendations.
Chronic conditions COLOR WEIGHER: History of UT, CAD, hypertension, hyperlipidemia, cardiomyopathy
Impression:
#Multivessel CAD s/p CABG x 4 with lysis of pericardial adhesions (POD #1)
#Acute anemia
#History of hypertension
#History of hyperlipidemia
#Obesity (BMI: 33.6)
#Former tobacco smoker (Quit 35 years ago, smoked 4 packs/day)
#Nicotine vape use
Plan:
Patient was extubated to nasal cannula on 04/06/2024, and is now on room air saturating 93-94% and breathing comfortably
prn nebulized bronchodilators - not currently bronchospastic
Encourage incentive spirometer use 10x per hour for at least 4 hrs a day
Removal of R�IJ cordis as per CT surgery team
Maintain MAP>65
Replete electrolytes with K>4, Mg>2
Monitor chest tube output (bilateral pleural + mediastinal x2)
Monitor hemoglobin
Monitor platelet count and coags
Transfuse blood products as needed to maintain Hb>7g/dL, plt>50k (given post-operative status)
CT surgery managing chest tubes
Monitor blood sugar to maintain euglycemia with goal BG 140-180
Insulin drip per protocol - being turned off today
Aspiration precautions
DVT prophylaxis
Early nutrition
Early mobilization
Patient is being weaned off of insulin drip and then being downgraded to CVICU�telemetry status. Once downgraded then we will sign off. Thank you for allowing us to be involved in the care of this patient. Please reconsult if there are any
additional questions/concerns, or if patient's respiratory status deteriorates.
Total time spent today was 57 minutes for this encounter. Time includes reviewing laboratory test/imaging results, reviewing pertinent medical records, obtaining and reviewing medical history, performing an appropriate exam, ordering medications,
tests and procedures. Time also includes documentation of this encounter, coordinating patient care and communicating with other healthcare professionals. Total time does not include separately billed tests performed on this date of service.
Subjective Dataa
Subjective Data
Date of Service:
Date of Service: April 07, 2024
Chief Complaint: Airport Tower Controller Follow Up
Subjective:
Seen and evaluated today at bedside. Currently on insulin drip at 2.3 units/hr. Chest tubes x [address] Heart rate 87, BP 125/71 and saturating 94% on room air. He denies shortness of breath or chest pain although has some chest discomfort
when he coughs. He feels well overall, sitting in chair in no acute distress.
Review of Systems
General: Other (Negative unless mentioned above)
Objective Data
Data Reviewed
Vital Signs / I&O / Oxygen:
Vital Signs
Temp Pulse Resp BP Pulse Ox
98.5 F 78 18 116/70 91
04/07/24 07:00 04/07/24 09:15 04/07/24 09:00 04/07/24 09:00 04/07/24 09:00
Intake and Output
04/06/24 04/07/24 04/08/24
06:59 06:59 06:59
Intake Total 915.0 / 951.3 86.5 / 86.5
Output Total 2385 / 2420 70 / 70
Balance -1470.0 / -1468.7 16.5 / 16.5
SaO2 [SIMV] 96
SaO2 91
Nasal Cannula flow liters per 4
minute
Physical Exam
General: Respiratory Distress (negative), Comfortable, Chills (negative) and Sweats (negative)
HEENT: Normocephalic, Anicteric and Other (R-IJ cordis in place)
Cardiovascular: S1-S2 and Peripheral Edema (negative)
Respiratory: Wheeze (negative), Crackles (Bibasilar), Rhonchi (negative), Non-Labored Respirations and Chest Tube (Bilateral pleural chest tubes + mediastinal chest tubes x 2)
GI: Soft, Non Distended, Non Tender and Normal Bowel Sounds
Neurology: AO x 3 and Tremors (negative)
Skin: Warm, Dry, Cyanosis (negative) and Jaundice (negative)
Labs/Micro/Reports
Lab Data
04/07/24 03:38
04/07/24 03:38
Laboratory Results
04/06/24 04/06/24 04/06/24
14:42 16:34 17:38
PT 18.3 H
INR 1.49
APTT 27.3
pH 7.28 L 7.42 7.42
pCO2 48 41 39
pO2 153 H 86 127 H
HCO3 22.6 26.6 25.3
O2 Delivery Level Vent
[2024-04-07 10:06] LABS: Glucose - Point of Care 114 mg/dl (70-99)
[2024-04-07 12:17] LABS: Glucose - Point of Care 98 mg/dl (70-99)
--- NOTE | 2024-04-07 12:45 | PTCARENOTE ---
Pt ambulated with cardiac rehab, tolerated well. Chest tube dressing changed. Kendall wraps removed from B/L legs, incisions intact, ecchymotic.
[2024-04-07] MEDS: NSS IV (13:26)
[2024-04-07 14:24] LABS: Glucose - Point of Care 162 mg/dl (70-99)
[2024-04-07] MEDS: TYLENOL 1000 MG PO ×2 (14:24→23:14)
--- NOTE | 2024-04-07 14:43 | W.PN.CARDCBS ---
Today's Communication / Plan
-
Postop care
Impression / Plan
-
PCP:
Chemical Blender: RADHA Connell
Impression:
Multivessel CAD for elective CABG
s/p CABG X 4 (WOLFE to LAD, SVG to D2, SVG to OM, SVG to PDA) 04/06/2024
Coronary artery disease
Status post anterior wall [place] with LAD ZORAN June 2014
Cardiomyopathy
Heart failure with reduced ejection fraction
Hypertension
Hyperlipidemia
Former tobacco use
History of noncompliance
Cardiac catheterization 02/23/2024: Left main 50% distal. LAD: Ostial 40%, diffuse 50% in-stent restenosis of mid LAD stent. Second diagonal 50% stenosis at origin. Left circumflex patent, proximal OM1 60% stenosis. RCA diffusely
diseased/heavily calcified occluded mid visit vessel with right to right and [id number] collaterals. LVG 45% with anterolateral and distal anterior hypokinesis. Hypokinesis of inferior to apical inferior wall
Pet/CT Myocard Perf 01/24/2024:Perfusion imaging reveals Large reversible inferior, mid inferoseptal and inferoapical defect consistent with ischemia. Moderate sized fixed mid anterior to anteroapical defect consistent with infarction. Stress Risk is
high risk study (>3% [place] or /year). Systolic function is Normal. The stress ejection fraction is 61%.
Echo 01/24/2024: EF 50 to 55%. Mild LVH. Mild MR, mild AI, PAP 28 mmHg
Plan:
-Presents 04/06/2024 for elective CABG after being found to have exertional chest discomfort prompting him to undergo cardiac PET which was grossly abnormal and prompted cardiac catheterization January 2024 which demonstrated multivessel coronary
artery disease
-Status post CABG X 4 (WOLFE to LAD, SVG to D2, SVG to OM, SVG to PDA) 04/06/2024
-Resting comfortably out of bed to chair, currently working remotely from his laptop, tells me he was ambulating the halls earlier without symptoms
-Postop EKG shows sinus rhythm with right bundle branch block. Bundle branch block is new postop and subsequently resolved, no longer is present on this morning's ECG.
-Agree with medical management: Aspirin/Plavix, high intensity statin, beta-velvet
-Amio for A-fib prophylaxis
-Eventual resumption of home Lasix
We will continue to follow with you
[facility] 04/06/2024:
This is a 63-year-old gentleman with a past medical history notable for an anterior wall myocardial infarction in June 2014. He never followed up in our office until May 2021 and again was not seen until January 2024. He reported vague
chest tightness intermittently during periods of physical exertion. A CT PET/Myoview was notable for a large reversible inferior, mid inferoseptal, inferior apical defect consistent with ischemia and a moderate-sized fixed mid anterior and anterior
apical defect. Coronary angiography 02/23/2024 demonstrated multivessel coronary artery disease and patient was referred for CABG.
Progress Note - Chemical Blender
Subjective
Date of Service: April 07, 2024
No acute overnight events. Resting comfortably in bed to chair. No cardiac complaints. Tells me he was ambulating the halls earlier without difficulty.
Objective
Labs:
04/07/24 03:38
04/07/24 03:38
Labs
Hgb 9.5 g/dL (13.0-18.0) L 04/07/24 03:38
Hct 26.8 % (39.0-52.0) L 04/07/24 03:38
Plt Count 162 10^3/uL (130-400) 04/07/24 03:38
PT 18.3 Sec (11.4-14.6) H 04/06/24 14:42
INR 1.49 04/06/24 14:42
APTT 27.3 Sec (23.4-35.0) 04/06/24 14:42
Sodium 143 mmol/L (135-145) 04/07/24 03:38
Potassium 3.5 mmol/L (3.5-5.1) 04/07/24 03:38
BUN 19 mg/dl (9-20) 04/07/24 03:38
Creatinine 0.8 mg/dL (0.7-1.3) 04/07/24 03:38
Glucose 115 mg/dl (70-99) H 04/07/24 03:38
Vital Signs and I&O:
Vital Signs
Temp Pulse Resp BP Pulse Ox
98.7 F 80 18 142/75 93
04/07/24 12:30 04/07/24 14:00 04/07/24 12:30 04/07/24 14:00 04/07/24 12:30
Vital Signs
Temp Pulse Resp BP Pulse Ox
98.7 F 80 18 142/75 93
04/07/24 12:30 04/07/24 14:00 04/07/24 12:30 04/07/24 14:00 04/07/24 12:30
Intake & Output
04/05/24 04/06/24 04/07/24 04/08/24
06:59 06:59 06:59 06:59
Intake Total 915.0 / 951.3 142.7 / 142.7
Output Total 2385 / 2420 155 / 155
Balance -1470.0 / -1468.7 -12.3 / -12.3
Physical Exam
Physical Exam
Gen: NAD
HEENT: NC/AT, sclera anicteric
Neck: No JVD
CV: RRR, NL s1/s2
Lungs: No increased work of breathing on room air
Abd: S/ND
Ext: No LE edema
Skin: Warm, dry. Sternotomy CDI.
Neuro: Non-focal
[2024-04-07] MEDS: KCL 20 MEQ PO (14:56)
[2024-04-07] MEDS: LASIX 40 MG PO (14:56)
[2024-04-07] MEDS: FLOMAX 0.4 MG PO (14:56)
--- NOTE | 2024-04-07 15:00 | PTCARENOTE ---
Pt unable to void, bladder scanned for 472. CT Alvin EPRAZA made aware. Straight cath completed for 525mL. Pt given 40mg PO Lasix and Flomax.
[2024-04-07] MEDS: LIPITOR 80 MG PO (16:58)
[2024-04-07 17:02] LABS: Glucose - Point of Care 144 mg/dl (70-99)
--- NOTE | 2024-04-07 18:30 | PTCARENOTE ---
Bladder scanned for 490mL, pt able to successfully void 450mL.
[2024-04-07] MEDS: LOPRESSOR 25 MG PO (20:31)
--- NOTE | 2024-04-07 21:00 | PTCARENOTE ---
Report received from SEVERIANO Turner. Walking rounds done. Pt in recliner chair. Assisted back to bed. Awake, alert, oriented x 4. Speech clear. 1 person assist. Equal extremity strength x 4. Pt on room air. Sat in bed on RA is 89%. 2L/NC applied. Sat up
to 98%. BBS present. Decreased to B bases. Posterior bases with fine rales. IS peak 2500 mls. Audible heart tones. + rub. Normotensive. Pt in SR. Medications, scheduled, given, including Amiodarone 200 mg po now dose. For pulse and wound
assessments, see flowsheets. CT x 4, to -20 cm suction. See flowsheets. Belly soft, round, nontender. Normoactive bs x 4. No BM yet. Ongoing plan of care. Roxicodone 5 mg given for c/po sternal pain at 2035.
--- NOTE | 2024-04-07 23:45 | PTCARENOTE ---
Pt bladder scanned for 875 mls. Pt feels urge to void. Pt voided 750 mls of clear yellow urine with hesitancy. Pt with pain to lateral chest, bilaterally after movement. Flexeril 5 mg po given for pain. VS done. Pt attempting to go to sleep. Remains
in SR, on 2L/NC.
--- NOTE | 2024-04-08 02:34 | W.PN.ANS.POP ---
Anesthesia Post Operative
- Anesthesia Post Op Note
Vital Signs Stable-See Nursing Note: Yes
Airway Patent: Yes
Adequate Pain Control: Yes
Change in Mental Status: No
Current Postoperative Nausea & Vomiting: No
Anesthesia Complications: No
General Anesthetic Recall: No
Unplanned Admission: No
Post Op Hydration Adequate: Yes
--- NOTE | 2024-04-08 04:00 | PTCARENOTE ---
VS done. AM CXR done.
--- NOTE | 2024-04-08 04:02 | W.PN.CT ---
Today's Communication / Plan
-
Plan:
-No major issues overnight. Hemodynamically and neurologically intact
-Off all drips
-Consider d/c of chest tubes: 2meds 55/205, R/L pleural
-Cont. current meds (ASA, Plavix, Amiodarone, Lipitor; will transition BB to home Coreg, PO Lasix/kcl)
-No temporary PW
-Maintain cordis another day
-Encourage use of IS
-Encourage cessation of vaping
-Wean off of O2 as tolerated
-OOB into chair/Ambulate
-Home in 1-2 days
Assessment / Plan
-
Assessment:
-S/P Median sternotomy/CABG x 4 (VERONICA to LAD, GSV to D2, GSV to OM, GSV to PDA)/Endoscopic harvest of RLE GSV/Endoscopic harvest of LLE GSV/Lysis of pericardial adhesions (sharp/blunt), by Dr. Mendiola, 04/06/24, pod#2
-Multivessel CAD/Hx CA/CAD S/P PCI with ZORAN to LAD, 06/18/14
-Hx systolic CHF
-LVEF 55% per intraop ANDRIA
-Mild MR/AI
-HTN
-HLD
-Class 1 obesity (BMI 33.6)
-History of noncompliance
-Former tobacco smoker (Quit 35 years ago, smoked 4 packs/day)
-Current Nicotine vape use
-Acute postop blood loss/Anemia (transfused 1u PRBC)
-Acute postop atelectasis/pleural effusion
-Acute postop hypovolemia with subsequent hypervolemia
-Acute postop urinary retention, resolved
Discussed patient care with: Cardiology, Nursing, Respiratory Therapy, Pharmacy and Care Team
Subjective
Procedure
S/P Median sternotomy/CABG x 4 (VERONICA to LAD, GSV to D2, GSV to OM, GSV to PDA)/Endoscopic harvest of RLE GSV/Endoscopic harvest of LLE GSV/Lysis of pericardial adhesions (sharp/blunt), by Dr. Mendiola, 04/06/24,
-
Date of Service: April 08, 2024
Pt c/o mild incisional pain, otherwise feels well
Objective Data
-
PT 18.3 Sec (11.4-14.6) H 04/06/24 14:42
INR 1.49 04/06/24 14:42
APTT 27.3 Sec (23.4-35.0) 04/06/24 14:42
Vital Signs
Vital Signs
Temp Pulse Resp BP Pulse Ox
98.7 F 92 17 127/65 96
04/07/24 23:10 04/07/24 23:13 04/07/24 23:10 04/07/24 23:13 04/07/24 23:10
CT Intake/Output/Weight
04/07/24 04/07/24 04/08/24
06:59 18:59 06:59
Intake Total 760.8 / 951.3 193.2 / 693.2 500 / 693.2
Output Total 1515 / 2420 1195 / 1990 795 / 1990
Balance -754.2 / -1468.7 -1001.8 / -1296.8 -295 / -1296.8
SaO2: 96 (2L)
Physical Exam
-
General: Awake, Oriented and AOx3
Cardiovascular: Regular rate & rhythm, No Murmurs, No Rub and No Gallop
Respiratory: Decreased Breath Sounds
Sternum: Stable
Incision: Clean, Dry, Intact and Dressing Intact
Extremities: Other (+trace edema)
Data Reviewed
-
Lab Results: Results Reviewed
Medications: Active Meds Reviewed
Chest X-Ray: Report Reviewed and Image Reviewed
ECG: Report Reviewed and Image Reviewed
[2024-04-08 04:03] VITALS: BP 124/68
[2024-04-08 05:52] LABS: Ionized Calcium 1.19 mMOL/L (1.15-1.33)
[2024-04-08 05:58] LABS: Hematocrit 23.8 % (39.0-52.0); Hemoglobin 8.2 g/dL (13.0-18.0); Mean Corp Hgb Conc. 34.5 g/dL (33.0-37.0); Mean Corpuscular Hgb 32.9 pg (27.0-31.0); Mean Corpuscular Volume 95.6 fL (80.0-94.0); Mean Platelet Volume 10.2 fL (7.4-10.4); Platelet Count 145 10^3/uL (130-400); Red Blood Cell Count 2.49 10^6/uL (4.70-6.10); Red Cell Dist. Width 13.2 % (11.5-14.5); White Blood Cell Count 12.3 10^3/uL (4.8-10.8)
[2024-04-08 06:00] VITALS: BMI 34.9
--- NOTE | 2024-04-08 06:01 | PTCARENOTE ---
Labs drawn and sent.
[2024-04-08] MEDS: TYLENOL 1000 MG PO ×3 (06:05→21:08)
[2024-04-08 06:18] LABS: Blood Urea Nitrogen 19 mg/dl (9-20); Calcium 8.2 mg/dl (8.4-10.2); Carbon Dioxide 28 mmol/L (22-30); Chloride 104 mmol/L (98-107); Estimated Creatinine Clearance 105 ml/min; Glucose 118 mg/dl (70-99); Magnesium 2.2 mg/dl (1.6-2.3); Potassium 3.7 mmol/L (3.5-5.1); Sodium 138 mmol/L (135-145); eGFR > 60.00
[2024-04-08] MEDS: KCL 40 MEQ PO (06:49)
[2024-04-08 07:30] VITALS: BP 147/73
--- NOTE | 2024-04-08 07:36 | PTCARENOTE ---
Received pt from telephone sex worker RN; pt AAOx3 and resting comfortably in chair; NSR on monitor and VSS; RIJ Cordis and PIV patent; lungs diminished; IS to 2000; CT x4 to -20 wall suction no air leak and no crepitus noted; positive bowel sounds; pt
voiding yellow urine; palpable pulses throughout; no edema noted; all surgical sites C/D/I; see nursing documentation for further details.
[2024-04-08] MEDS: KCL 20 MEQ PO (07:51)
[2024-04-08] MEDS: BACTROBAN 2% OINTMENT 1 APPLIC NASAL ×2 (07:51→19:53)
[2024-04-08] MEDS: NEURONTIN 100 MG PO ×3 (07:51→21:09)
[2024-04-08] MEDS: PACERONE 200 MG PO ×4 (07:51→21:09)
[2024-04-08] MEDS: MAGNESIUM OXIDE 500 MG PO ×2 (07:51→19:53)
[2024-04-08] MEDS: VITAMIN C 500 MG PO (07:51)
[2024-04-08] MEDS: FLOMAX 0.4 MG PO (07:51)
[2024-04-08] MEDS: COREG 6.25 MG PO (07:51)
[2024-04-08] MEDS: SENOKOT-S 1 TABLET PO ×2 (07:51→19:53)
[2024-04-08] MEDS: ROXICODONE 5 MG PO (07:52)
[2024-04-08] MEDS: LIDOCAINE 4% PATCH 1 PATCH TOPICAL (07:52)
[2024-04-08] MEDS: FEOSOL 325 MG PO (07:52)
[2024-04-08] MEDS: PLAVIX 75 MG PO (07:52)
[2024-04-08] MEDS: LASIX 40 MG PO (07:52)
[2024-04-08] MEDS: LOW STRENGTH ASPIRIN 81 MG PO (07:52)
[2024-04-08] MEDS: PROTONIX 40 MG PO (07:52)
--- NOTE | 2024-04-08 10:24 | PTCARENOTE ---
Mediastinal CT x2 and Right and Left Pleural CT removed per CV[facility] order.
[2024-04-08 12:00] VITALS: BP 126/67
--- NOTE | 2024-04-08 12:04 | PTCARENOTE ---
NSR on monitor and VSS; assessment unchanged; pt ambulated hallways with RN and resting comfortably in chair.
[2024-04-08 15:09] VITALS: BP 156/77
--- NOTE | 2024-04-08 16:56 | PTCARENOTE ---
Assessment unchanged; NSR on monitor and VSS; pt ambulating hallways.
[2024-04-08] MEDS: LIPITOR 80 MG PO (17:02)
[2024-04-08 19:32] VITALS: BP 138/88
[2024-04-08] MEDS: COREG 12.5 MG PO (19:53)
--- NOTE | 2024-04-08 20:59 | PTCARENOTE ---
assumed care of patient @ 1900. recieved pt sitting in chair, AOx3. Spontaneiously ambulating. NSR on tele, +pp - E. Slight Rub. Lungs clear on room air. +BS. Voiding in urinal. Sternal aquacel, B/l groin and leg sites CDI. R IJ cordis with PIV
patent. pt resting comfortably in chair with call dotson within reach .
[2024-04-08] MEDS: MELATONIN 5 MG PO (21:08)
[2024-04-09] VITALS (8 sets, daily range): BP systolic 114–155; BP diastolic 75–112; PULSE 90; O2SAT 95–98; BMI 34.6
--- NOTE | 2024-04-09 00:18 | PTCARENOTE ---
pt resting comfortably, no change in assessment .
--- NOTE | 2024-04-09 04:49 | PTCARENOTE ---
labs drawn and sent . pt resting comfortably, no change in assessment
--- NOTE | 2024-04-09 04:53 | W.PN.CT ---
Today's Communication / Plan
-
Plan:
-No major issues overnight. Hemodynamically and neurologically intact
-Tolerating increased Coreg to home dose of 12.5 mg BID
-Cont. current meds (ASA, Plavix, Amiodarone, Lipitor, Coreg, Lasix/kcl)
-F/U 2-view CXR
-D/C cordis
-No temporary PW
-Encourage use of IS
-Encourage cessation of vaping
-OOB into chair/Ambulate
-Home today
Assessment / Plan
-
Assessment:
-S/P Median sternotomy/CABG x 4 (VERONICA to LAD, GSV to D2, GSV to OM, GSV to PDA)/Endoscopic harvest of RLE GSV/Endoscopic harvest of LLE GSV/Lysis of pericardial adhesions (sharp/blunt), by Dr. Mendiola, 04/06/24, pod#3
-Multivessel CAD/Hx PR/CAD S/P PCI with ZORAN to LAD, 06/18/14
-Hx systolic CHF
-LVEF 55% per intraop ANDRIA
-Mild MR/AI
-HTN
-HLD
-Class 1 obesity (BMI 33.6)
-History of noncompliance
-Former tobacco smoker (Quit 35 years ago, smoked 4 packs/day)
-Current Nicotine vape use
-Acute postop blood loss/Anemia (transfused 1u PRBC)
-Acute postop atelectasis/pleural effusion
-Acute postop hypovolemia with subsequent hypervolemia
-Acute postop urinary retention, resolved
Discussed patient care with: Cardiology, Nursing, Respiratory Therapy, Pharmacy and Care Team
Subjective
Procedure
S/P Median sternotomy/CABG x 4 (VERONICA to LAD, GSV to D2, GSV to OM, GSV to PDA)/Endoscopic harvest of RLE GSV/Endoscopic harvest of LLE GSV/Lysis of pericardial adhesions (sharp/blunt), by Dr. Mendiola, 04/06/24,
-
Date of Service: April 09, 2024
Pt c/o mild incisional pain, otherwise feel well. Ambulating hallway without difficulty
Objective Data
-
PT 18.3 Sec (11.4-14.6) H 04/06/24 14:42
INR 1.49 04/06/24 14:42
APTT 27.3 Sec (23.4-35.0) 04/06/24 14:42
Vital Signs
Vital Signs
Temp Pulse Resp BP Pulse Ox
97.7 F 79 16 114/77 94
04/09/24 04:48 04/09/24 04:41 04/09/24 04:48 04/09/24 04:41 04/09/24 04:48
CT Intake/Output/Weight
04/08/24 04/08/24 04/09/24
06:59 18:59 06:59
Intake Total 500 / 693.2 80 / 170 90 / 170
Output Total 1280 / 2475 925 / 2925 2000 / 2925
Balance -780 / -1781.8 -845 / -2755 -1910 / -2755
SaO2: 94 (RA)
Physical Exam
-
General: Awake, Oriented and AOx3
Cardiovascular: Regular rate & rhythm, No Murmurs, No Rub and No Gallop
Respiratory: Decreased Breath Sounds (at bases, otherwise clear)
Sternum: Stable
Incision: Clean, Dry, Intact and Dressing Intact
Extremities: Edema +1 (Right LE) and Other
Data Reviewed
-
Lab Results: Results Reviewed
Medications: Active Meds Reviewed
Chest X-Ray: Report Reviewed and Image Reviewed
ECG: Report Reviewed and Image Reviewed
[2024-04-09 04:56] LABS: Hematocrit 23.4 % (39.0-52.0); Hemoglobin 8.1 g/dL (13.0-18.0); Mean Corp Hgb Conc. 34.6 g/dL (33.0-37.0); Mean Corpuscular Hgb 32.5 pg (27.0-31.0); Mean Platelet Volume 10.1 fL (7.4-10.4); Platelet Count 132 10^3/uL (130-400); Red Blood Cell Count 2.49 10^6/uL (4.70-6.10); Red Cell Dist. Width 13.2 % (11.5-14.5); White Blood Cell Count 10.6 10^3/uL (4.8-10.8)
[2024-04-09 05:19] LABS: Blood Urea Nitrogen 17 mg/dl (9-20); Carbon Dioxide 28 mmol/L (22-30); Chloride 107 mmol/L (98-107); Estimated Creatinine Clearance 106 ml/min; Glucose 111 mg/dl (70-99); Magnesium 2.1 mg/dl (1.6-2.3); Sodium 139 mmol/L (135-145); eGFR > 60.00
[2024-04-09] MEDS: TYLENOL 1000 MG PO (06:18)
[2024-04-09] MEDS: NSS IV ×2 (07:47→15:34)
[2024-04-09] MEDS: PLAVIX 75 MG PO (08:27)
[2024-04-09] MEDS: VITAMIN C 500 MG PO (08:27)
[2024-04-09] MEDS: LOW STRENGTH ASPIRIN 81 MG PO (08:27)
[2024-04-09] MEDS: MAGNESIUM OXIDE 500 MG PO (08:27)
[2024-04-09] MEDS: KCL 20 MEQ PO (08:27)
[2024-04-09] MEDS: COREG 12.5 MG PO (08:27)
[2024-04-09] MEDS: PROTONIX 40 MG PO (08:27)
[2024-04-09] MEDS: LASIX 40 MG PO (08:28)
[2024-04-09] MEDS: NEURONTIN 100 MG PO (08:28)
[2024-04-09] MEDS: SENOKOT-S 1 TABLET PO (08:28)
[2024-04-09] MEDS: PACERONE 200 MG PO (08:28)
[2024-04-09] MEDS: FEOSOL 325 MG PO (08:28)
[2024-04-09] MEDS: BACTROBAN 2% OINTMENT 1 APPLIC NASAL (08:28)
[2024-04-09] MEDS: LIDOCAINE 4% PATCH TOPICAL (08:35)
--- NOTE | 2024-04-09 09:22 | PTCARENOTE ---
assumed care of pt from previous shift RN, sinus rhythm on tele, VSS, + peripheral pulses, no edema. Lungs diminished, pox 96% on RA. + bs, tolerating PO intake, voids spontaneously. Right IJ cordis and PIV flush easily. MSI w glue intact, CT
dressing intact, bilateral leg post op sites w glue intact. Pt denies pain, ambulating independently in hallway. plan of care reviewed and questions encouraged.
--- NOTE | 2024-04-09 10:18 | W.[place]-PDMP ---
[place]-PD[place]
-
Checked the [place]- Pres[place] Drug Monitoring Program website, no red flags identified; safe to proceed with prescription.
--- NOTE | 2024-04-09 10:18 | W.DCSUMMARY ---
Discharge Summary
Discharge Data
Date of Admission: 04/06/24
Date of Discharge: 04/09/24
-
Pending Results: No
Hospital Course
Primary care physician: Onur Waldrop,
Outpatient pet nutrition specialist: Landry Connell MD
Inpatient consultants:
Procedures:
1. 04/06/24 CABG x4 (WOLFE-LAD, SVG-D2, SVG-OM, SVG-PDA)
Primary Diagnosis:
1. CAD
Secondary Diagnoses:
1. s/p PCI
2. cardiomyopathy
3. HTN
4. HLD
HPI: Mr. Langley is a pleasant 63-year-old male with past medical history significant for CAD status post anterior wall NH with LAD stent in 2014, hypertension, hyperlipidemia, heart failure with reduced EF, vape smoker. He was recently seen by
for uncontrolled hypertension and occasional angina with exertion. His recent cardiac catheterization performed on 02/23/2024 demonstrates multivessel coronary artery disease. His recent echocardiogram performed on 01/24/2024
demonstrates normal biventricular size and function, LVEF of 50 to 55%, mild MR, mild aortic regurgitation, trace tricuspid regurgitation. He was referred to CT surgery for evaluation for CABG.
Hospital course: Patient was admitted via same-day admissions on 04/06/24 taking operating room and underwent coronary artery bypass grafting timesx [address] Mendiola. He tolerated this procedure well and was transferred to the CVICU in stable
condition on minimal vasopressor support. He was extubated later that evening and his Levophed was weaned and discontinued. On postop day 1 his monitoring lines were removed and he was downgraded to telemetry status. The patient progress along
the clinical pathway and had an uncomplicated postoperative course. It was felt that he could be discharged on postop day 2. He was given explicit instructions on wound care physical activity and diet. He will follow-up with CT surgery in the
office as scheduled and cardiology as scheduled. He will follow-up with his family doctor as needed.
Home medications:
atorvastatin 40 mg tablet 80 mg (2 x 40 mg)
carvedilol 12.5 mg tablet 12.5 mg PO BID
clopidogrel 75 mg tablet 75 mg PO DAILY
furosemide 40 mg tablet 40 mg PO DAILY
potassium chloride 10 mEq tablet,extended release 10 meq PO DAILY
spironolactone 25 mg tablet 25 mg PO QPM
acetaminophen 325 mg tablet 650 mg (2 x 325 mg) PO Q4HPRN PRN mild pain,headache,temp >101F
ascorbic acid (vitamin C) 500 mg tablet (Vitamin C) 500 mg PO DAILY
aspirin 81 mg chewable tablet 81 mg PO DAILY
ferrous sulfate 325 mg (65 mg iron) tablet (FeroSul) 325 mg PO DAILY
lisinopril 20 mg tablet 20 mg PO DAILY
oxycodone 5 mg tablet 5 mg PO Q4HPRN PRN moderate pain
Discharge Plan
-
Patient Disposition: Home (Routine Discharge)
Discharge Diagnosis/Procedures: CAD/CABG
Condition: Fair
Diet: Low Fat, Low Cholesterol and Low Sodium
Activity: As tolerated
Driving Restrictions: Not until seen by your Dr
Bathing Restrictions: OK to Shower
Other Services: Cardiac Rehab
Specialty Instructions: Weigh Daily- Call MD for wt gain/loss 3 lbs overnight/5 lbs in 1 week
Activity Restrictions/Additional Instructions:
Please call [facility] Cardiac rehab Phase 2 program at [phone] to schedule your first visit
ACTIVITY:
-No strenuous activity: no heavy lifting, pushing, pulling anything over 15 pounds for one month
-continue to use stairs as tolerated
DRIVING RESTRICTIONS:
-No driving for one month or until approved by your surgeon
WOUND CARE:
-Shower daily. Use soap & water.
-No lotions, creams or powders on incision area.
DIET:
-continue a low fat/low cholesterol diet.
-IF you are diabetic, continue carb controlled diet.
SPECIALTY INSTRUCTIONS:
-Weigh yourself daily. Call your physician for any weight gain/loss of 3 lbs overnight or 5 lbs in one week.
-REPORT any clicking noise or uneven appearance of your sternum to your surgeon immediately.
-If you smoke, you are instructed to quit. The [place] smoking hotline phone number is [phone]
CARDIAC REHAB
- Please Call to make appointments for Phase II Cardiac Rehab
- start in 5-6 weeks with your local hospital program. (See Cardiac Rehabilitation Discharge Booklet).
- [facility]: [phone]
Referrals:
CT Transitional Care Nurse [Outside]
(
The Cardiothoracic Transitional Care Nurse will call you to set up a visit in 1-2 days.)
Carol Thomas CRNP [Specified Professional Personl] - 05/21/24 10:40 am
Onur Waldrop DO [Family Provider] -
Emanuel Mendiola MD [Active] - 05/08/24 2:00 pm
Prescriptions:
New
acetaminophen 325 mg Tablet
650 mg PO Q4HPRN PRN (Reason: mild pain,headache,temp >101F ) Qty: 0 0RF
aspirin 81 mg Tablet,Chewable
81 mg PO DAILY Qty: 0 0RF
ferrous sulfate [FeroSul] 325 mg (65 mg iron) Tablet
325 mg PO DAILY Qty: 30 1RF
oxycodone 5 mg Tablet
5 mg PO Q4HPRN PRN (Reason: moderate pain) Qty: 20 0RF
ascorbic acid (vitamin C) [Vitamin C] 500 mg Tablet
500 mg PO DAILY Qty: 30 1RF
Continued
atorvastatin 40 MG tablet
80 mg PO QPM Qty: 30 11RF
furosemide 40 MG tablet
40 mg PO DAILY Qty: 30 0RF
carvedilol 12.5 MG tablet
12.5 mg PO BID Qty: 60 0RF
clopidogrel 75 MG tablet
75 mg PO DAILY Qty: 30 0RF
potassium chloride 10 MEQ tablet extended release
10 meq PO DAILY Qty: 30 0RF
spironolactone 25 MG tablet
25 mg PO QPM
Changed
lisinopril 20 MG tablet
20 mg PO DAILY Qty: 30 0RF
Discontinued
amlodipine 10 MG tablet
10 mg PO DAILY Qty: 30 0RF
hydralazine 25 mg Tablet
25 mg PO BID
Discharge Orders:
Discharge Patient (As Directed); Ordered 04/09/24
Ordered By: Landry Chand
Care Plan Goals
Care Plan Goals:
Problem: Readiness for enhanced knowledge related to diagnosis and treatment plan
Goal: Understand your diagnosis and treatment plan needs, including medications if applicable.
Instructions: Know your diagnosis, underlying causes and treatment plan options, including medications if applicable. Consult with your health care team to learn about your diagnosis and treatment plan, including medications if applicable.
Discharge Date and Time
Print Language: MALAY
--- NOTE | 2024-04-09 10:34 | PTCARENOTE ---
2 view CXR completed
--- NOTE | 2024-04-09 11:04 | W.PN.CARDCBS ---
Today's Communication / Plan
-
Supportive postop care. Cardiac rehab
Impression / Plan
-
PCP:
Sewer Connector: RADHA Connell
Impression:
Multivessel CAD for elective CABG
s/p CABG X 4 (WOLFE to LAD, SVG to D2, SVG to OM, SVG to PDA) 04/06/2024
Coronary artery disease
Status post anterior wall CO with LAD ZORAN June 2014
Cardiomyopathy
Heart failure with reduced ejection fraction
Hypertension
Hyperlipidemia
Former tobacco use
History of noncompliance
Cardiac catheterization 02/23/2024: Left main 50% distal. LAD: Ostial 40%, diffuse 50% in-stent restenosis of mid LAD stent. Second diagonal 50% stenosis at origin. Left circumflex patent, proximal OM1 60% stenosis. RCA diffusely
diseased/heavily calcified occluded mid visit vessel with right to right and [id number] collaterals. LVG 45% with anterolateral and distal anterior hypokinesis. Hypokinesis of inferior to apical inferior wall
Pet/CT Myocard Perf 01/24/2024:Perfusion imaging reveals Large reversible inferior, mid inferoseptal and inferoapical defect consistent with ischemia. Moderate sized fixed mid anterior to anteroapical defect consistent with infarction. Stress Risk is
high risk study (>3% CO or /year). Systolic function is Normal. The stress ejection fraction is 61%.
Echo 01/24/2024: EF 50 to 55%. Mild LVH. Mild MR, mild AI, PAP 28 mmHg
Plan:
-Presents 04/06/2024 for elective CABG after being found to have exertional chest discomfort prompting him to undergo cardiac PET which was grossly abnormal and prompted cardiac catheterization January 2024 which demonstrated multivessel coronary
artery disease
-Status post CABG X 4 (WOLFE to LAD, SVG to D2, SVG to OM, SVG to PDA) 04/06/2024
-Hemodynamically stable with plan for discharge per CT surgery home today
-Outpatient cardiac follow-up to be arranged
-Cardiac rehab
-Encouraged cessation of vaping
HPI 04/06/2024:
This is a 63-year-old gentleman with a past medical history notable for an anterior wall myocardial infarction in June 2014. He never followed up in our office until May 2021 and again was not seen until January 2024. He reported vague
chest tightness intermittently during periods of physical exertion. A CT PET/Myoview was notable for a large reversible inferior, mid inferoseptal, inferior apical defect consistent with ischemia and a moderate-sized fixed mid anterior and anterior
apical defect. Coronary angiography 02/23/2024 demonstrated multivessel coronary artery disease and patient was referred for CABG.
Progress Note - Sewer Connector
Subjective
Date of Service: April 09, 2024
Seen and examined sitting out of bed to chair. Patient is feeling well with very minimal incisional pain. Ambulating around floors without symptoms. For discharge home today
Objective
Labs:
04/09/24 04:43
04/09/24 04:43
Labs
Hgb 8.1 g/dL (13.0-18.0) L 04/09/24 04:43
Hct 23.4 % (39.0-52.0) L 04/09/24 04:43
Plt Count 132 10^3/uL (130-400) 04/09/24 04:43
PT 18.3 Sec (11.4-14.6) H 04/06/24 14:42
INR 1.49 04/06/24 14:42
APTT 27.3 Sec (23.4-35.0) 04/06/24 14:42
Sodium 139 mmol/L (135-145) 04/09/24 04:43
Potassium 4.0 mmol/L (3.5-5.1) 04/09/24 04:43
BUN 17 mg/dl (9-20) 04/09/24 04:43
Creatinine 0.8 mg/dL (0.7-1.3) 04/09/24 04:43
Glucose 111 mg/dl (70-99) H 04/09/24 04:43
Vital Signs and I&O:
Vital Signs
Temp Pulse Resp BP Pulse Ox
98.2 F 80 16 155/76 96
04/09/24 08:24 04/09/24 09:00 04/09/24 08:24 04/09/24 08:24 04/09/24 09:29
Vital Signs
Temp Pulse Resp BP Pulse Ox
98.2 F 80 16 155/76 96
04/09/24 08:24 04/09/24 09:00 04/09/24 08:24 04/09/24 08:24 04/09/24 09:29
Intake & Output
04/07/24 04/08/24 04/09/24 04/10/24
06:59 06:59 06:59 06:59
Intake Total 915.0 / 951.3 693.2 / 693.2 170 / 170 110 / 110
Output Total 2385 / 2420 2475 / 2475 3225 / 3225
Balance -1470.0 / -1468.7 -1781.8 / -1781.8 -3055 / -3055 110 / 110
Physical Exam
Physical Exam
Gen: NAD
HEENT: NC/AT, sclera anicteric
Neck: No JVD
CV: RRR, NL s1/s2
Lungs: No increased work of breathing on room air
Abd: S/ND +BS
Ext: No LE edema
Skin: Sternotomy CDI.
--- NOTE | 2024-04-09 11:27 | PTCARENOTE ---
cordis removed without incident.
--- NOTE | 2024-04-09 14:24 | PTCARENOTE ---
dressings removed, pt showered without incident. IV line removed. discharge instructions, medication list and follow up appointments reviewed w the pt. Questions encouraged.
[2024-04-09] MEDS: TYLENOL PO (15:34)
== END 2024-04-09 16:11 | disposition home or self-care (01) | DRG 236 ==
LOC: CVICU 05:16
PROVIDERS: Anesthesiology; Nurse Practitioner; ADMITTING PHYSICIAN Thoracic Surgery (Cardiothoracic Vascular Surgery); CONSULT PHYSICIAN Internal Medicine Cardiovascular Disease; CONSULT PHYSICIAN Internal Medicine Critical Care Medicine; FAMILY PHYSICIAN Family Medicine
PROC: 02NN0ZZ Release Pericardium, Open Approach (ICD-10-PCS; 2024-04-06)
PROC: 06BP4ZZ Excision of Right Saphenous Vein, Percutaneous Endoscopic Approach (ICD-10-PCS; 2024-04-06)
PROC: 02100ZC Bypass Coronary Artery, One Artery from Thoracic Artery, Open Approach (ICD-10-PCS; 2024-04-06)
PROC: B24BZZ4 Ultrasonography of Heart with Aorta, Transesophageal (ICD-10-PCS; 2024-04-06)
PROC: 30233N1 Transfusion of Nonautologous Red Blood Cells into Peripheral Vein, Percutaneous Approach (ICD-10-PCS; 2024-04-06)
PROC: 5A1221Z Performance of Cardiac Output, Continuous (ICD-10-PCS; 2024-04-06)
PROC: 021209W Bypass Coronary Artery, Three Arteries from Aorta with Autologous Venous Tissue, Open Approach (ICD-10-PCS; 2024-04-06)
DX: I25.118 Atherosclerotic heart disease of native coronary artery with other forms of angina pectoris (principal); I31.0 Chronic adhesive pericarditis; D62 Acute posthemorrhagic anemia; I50.22 Chronic systolic (congestive) heart failure; J98.11 Atelectasis; I25.119 Atherosclerotic heart disease of native coronary artery with unspecified angina pectoris; E86.1 Hypovolemia; R33.8 Other retention of urine; I45.10 Unspecified right bundle-branch block; I11.0 Hypertensive heart disease with heart failure; E78.5 Hyperlipidemia, unspecified; I42.9 Cardiomyopathy, unspecified; F17.290 Nicotine dependence, other tobacco product, uncomplicated; I08.3 Combined rheumatic disorders of mitral, aortic and tricuspid valves; E66.811 Obesity, class 1; I25.2 Old myocardial infarction; Z68.33 Body mass index [BMI] 33.0-33.9, adult; Z91.199 Patient's noncompliance with other medical treatment and regimen due to unspecified reason; Z79.02 Long term (current) use of antithrombotics/antiplatelets; Z82.49 Family history of ischemic heart disease and other diseases of the circulatory system
CPT/HCPCS: 94727; 94729; 36415; 71045; 71046; 80048; 80053; 81003; 81015; 82248; 82330; 82565; 82805; 82947; 82962; 83036; 83735; 84132; 84302; 84520; 85014; 85018; 85025; 85027; 85049; 85610; 85730; 86850; 86900; 86901; 86920; 87070; 88738; 93005; 93312; 93320; 93325; 93880; 94002; 94010; P9016; P9045